=== PATIENT | male | born 1975 | race Two or more races ===

== ENCOUNTER 2025-02-19 12:15 | Emergency (ER) | payer MEDICAID, OTHER ==
[~2025-02-19] VITALS: Ht 180.3 cm; Wt 86.3 kg
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
[2025-02-19] MEDS: HYDROcodone-ACET 10/325MG TAB PO ONE ×2 (14:11→16:51)
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
--- NOTE | 2025-02-19 14:22 | DVH ---
CHEST RADIOGRAPH INDICATION: shoulder pain TECHNIQUE: Single frontal view of the chest was obtained COMPARISON: None FINDINGS: Lines and Tubes: None Lungs: No focal consolidation. Pleura: No effusion. No pneumothorax. Cardiomediastinal contours: Unremarkable Bones: No acute osseous abnormality. / fracture of the right distal clavicle of unknown chronicity. Recommend correlation with point tenderness. IMPRESSION: No acute cardiopulmonary disease.
--- NOTE | 2025-02-19 14:23 | DVH ---
CLINICAL INDICATION: shoulder pain TECHNIQUE: 4 radiographic views of the right shoulder were obtained. COMPARISON: None FINDINGS/IMPRESSION: There is acute comminuted fracture of the right distal clavicle with superior displacement of the proximal fragment. No shoulder dislocation.
[2025-02-19 16:41] VITALS: BP 138/95; PULSE 69; RESP 18; TEMP 97.7; O2SAT 100
[2025-02-19] MEDS ORDERED: HYDR1TAB97 PO (18:11)
== END 2025-02-19 18:25 | disposition home or self-care (01) ==
LOC: ER 12:15 → EDBD 12:15 → ER 18:25
DX: S42.031A Displaced fracture of lateral end of right clavicle, initial encounter for closed fracture (principal); V86.55XA Driver of 3- or 4- wheeled all-terrain vehicle (ATV) injured in nontraffic accident, initial encounter; Y93.89 Activity, other specified; Y92.488 Other paved roadways as the place of occurrence of the external cause; Y99.8 Other external cause status
CPT/HCPCS: 70450; 71045; 73030